=== PATIENT | male | born 1965 | race African-American/Black ===

== ENCOUNTER 2019-01-10 21:02 | Inpatient (IN) | payer MEDICAID ==
[~2019-01-10] VITALS: Ht 200.7 cm; Wt 93.0 kg
[2019-01-10] MEDS ORDERED: MORPHINE SULFATE 4 MG/ML CPJ (NOT FOR IM USE) IV STA (23:36)
[2019-01-11 00:25] LABS: BASOPHILS % 0.5 % (0.0-2.0); EOSINOPHILS % 1.1 % (0.0-5.0); HEMATOCRIT. 40.2 % (42.0-52.0); HEMOGLOBIN. 12.8 g/dL (14.0-18.0); LYMPHOCYTES % 27.9 % (20.0-50.0); MEAN CORPUSCULAR HEMOGLOBIN 21.7 pg (28.0-32.0); MEAN CORPUSCULAR VOLUME 67.8 fL (80.0-94.0); MONOCYTES % 4.7 % (2.0-8.0); NEUTROPHILS % 65.8 % (40.0-76.0); PLATELET 381 x1000/uL (130-400); RED BLOOD CELL COUNT 5.92 mill/uL (4.7-6.1); RED CELL DISTRIBUTION WIDTH 17.2 % (11.6-14.6)
[2019-01-11 00:31] LABS: CHLORIDE 100 mEq/L (98-107)
[2019-01-11 00:37] LABS: INR 1.1; PROTHROMBIN TIME 11.1 sec (9.1-11.1)
[2019-01-11] MEDS ORDERED: ACETAMINOPHEN 325MG TABLET PO ONE (01:00)
[2019-01-11] MEDS ORDERED: ACETAMINOPHEN 325MG TABLET PO PRN (07:45)
[2019-01-11] MEDS ORDERED: IPRATROPIUM/ALBUTEROL 0.5-3(2.5)MG/3ML NEB HHN PRN (07:45)
[2019-01-11] MEDS ORDERED: ONDANSETRON HCL 4MG/2ML INJ IV PRN (07:45)
[2019-01-11 08:00] VITALS: BP 125/84
[2019-01-11] MEDS ORDERED: NA PHOS,M-B/NA PHOS,DI-BA ENEMA 118ML PR NR (09:00)
[2019-01-11] MEDS ORDERED: LACTULOSE 20G/30ML UDC PO NR (09:00)
[2019-01-11] MEDS: DOCUSATE SODIUM 250MG CAPSULE PO SCH (09:38)
[2019-01-11 09:49] VITALS: BP 125/81
[2019-01-11 12:00] VITALS: BP 118/74
[2019-01-11] MEDS ORDERED: LACTULOSE 20G/30ML UDC PO PRN (14:00)
[2019-01-11] MEDS: OMEPRAZOLE 20MG CAPSULE EXTENDED RELEASE PO SCH (14:56)
[2019-01-11 16:00] VITALS: BP 114/74
[2019-01-11] MEDS: SUCRALFATE 1 G/10 ML UDC PO SCH ×2 (18:34→23:11)
[2019-01-11 23:00] VITALS: BP 127/76
[2019-01-12 04:00] VITALS: BP 131/74
[2019-01-12] MEDS: OMEPRAZOLE 20MG CAPSULE EXTENDED RELEASE PO SCH (06:37)
[2019-01-12] MEDS: SUCRALFATE 1 G/10 ML UDC PO SCH ×5 (06:37→23:34)
[2019-01-12 08:26] VITALS: BP 102/70
[2019-01-12] MEDS: DOCUSATE SODIUM 250MG CAPSULE PO SCH (08:55)
[2019-01-12 17:01] LABS: BASOPHILS % 0.7 % (0.0-2.0); EOSINOPHILS % 4.3 % (0.0-5.0); HEMATOCRIT. 35.3 % (42.0-52.0); MEAN CORPUSCULAR HEMOGLOBIN 21.3 pg (28.0-32.0); MEAN CORPUSCULAR VOLUME 68.3 fL (80.0-94.0); MEAN PLATELET VOLUME 8.4 fl (7.4-10.4); MONOCYTES % 6.3 % (2.0-8.0); NEUTROPHILS % 60.7 % (40.0-76.0); PLATELET 385 x1000/uL (130-400); RED BLOOD CELL COUNT 5.17 mill/uL (4.7-6.1); RED CELL DISTRIBUTION WIDTH 17.2 % (11.6-14.6)
[2019-01-12 17:06] LABS: CHLORIDE 105 mEq/L (98-107)
[2019-01-12 20:00] VITALS: BP 124/62
[2019-01-12] MEDS: BUDESONIDE 0.5MG/2ML NEB HHN SCH (20:07)
[2019-01-13] VITALS: BP 101/62
[2019-01-13 04:00] VITALS: BP 101/80
[2019-01-13 06:20] LABS: BASOPHILS % 0.8 % (0.0-2.0); EOSINOPHILS % 3.1 % (0.0-5.0); HEMATOCRIT. 31.8 % (42.0-52.0); HEMOGLOBIN. 10.2 g/dL (14.0-18.0); LYMPHOCYTES % 34.5 % (20.0-50.0); MEAN CORPUSCULAR HEMOGLOBIN 21.5 pg (28.0-32.0); MEAN CORPUSCULAR VOLUME 67.2 fL (80.0-94.0); MEAN PLATELET VOLUME 8.7 fl (7.4-10.4); MONOCYTES % 6.7 % (2.0-8.0); NEUTROPHILS % 54.9 % (40.0-76.0); PLATELET 331 x1000/uL (130-400); RED BLOOD CELL COUNT 4.73 mill/uL (4.7-6.1)
[2019-01-13] MEDS: SUCRALFATE 1 G/10 ML UDC PO SCH (06:34)
[2019-01-13 07:54] LABS: CHLORIDE 102 mEq/L (98-107)
[2019-01-13 08:00] VITALS: BP_SYST 101; BP_SYST 174; BP_DIAS 65; BP_DIAS 87
[2019-01-13] MEDS: DOCUSATE SODIUM 250MG CAPSULE PO SCH (08:58)
[2019-01-13] MEDS ORDERED: FAMOTIDINE 20MG TABLET PO SCH (09:00)
[2019-01-13] MEDS: BUDESONIDE 0.5MG/2ML NEB HHN SCH (09:45)
== END 2019-01-13 10:42 | disposition left against medical advice (07) | DRG 241 ==
LOC: ER 21:02 → 6EST 01-11 01:47 → ENRESERV 01-11 04:44
PROVIDERS: ADMIT Internal Medicine; ATTEND Internal Medicine
DX: K25.9 Gastric ulcer, unspecified as acute or chronic, without hemorrhage or perforation (principal); D64.9 Anemia, unspecified; I10 Essential (primary) hypertension; J45.909 Unspecified asthma, uncomplicated; K59.00 Constipation, unspecified; R00.0 Tachycardia, unspecified; Z87.11 Personal history of peptic ulcer disease; Z79.899 Other long term (current) drug therapy; Z88.6 Allergy status to analgesic agent
CPT/HCPCS: 36415; 74176; 80048; 82270; 85044; 96374; 99285; J2270; J7620; J7626

== ENCOUNTER 2019-03-24 17:48 | Emergency (ER) | payer OTHER, MEDICAID ==
[~2019-03-24] VITALS: Ht 188 cm; Wt 80.0 kg
[2019-03-24 17:56] VITALS: BP 120/73
== END 2019-03-24 18:57 | disposition left against medical advice (07) ==
LOC: ER 17:48
DX: R56.9 Unspecified convulsions (principal); J45.909 Unspecified asthma, uncomplicated; Z88.6 Allergy status to analgesic agent
CPT/HCPCS: 99283

== ENCOUNTER 2019-06-08 18:41 | Inpatient (IN) | payer MEDICAID, OTHER ==
[~2019-06-08] VITALS: Ht 195.6 cm; Wt 87.7 kg
[2019-06-08 20:00] VITALS: BP 146/95
[2019-06-08] MEDS ORDERED: MORPHINE SULFATE 4 MG/ML CPJ (NOT FOR IM USE) IV STA (20:31)
[2019-06-08] MEDS ORDERED: ONDANSETRON HCL 4MG/2ML INJ IV STA (20:31)
[2019-06-08] MEDS ORDERED: SODIUM CHLORIDE 0.9% 1,000 ML IV ONE (20:31)
[2019-06-08] MEDS ORDERED: FAMOTIDINE 20MG/2ML VIAL IV STA (20:31)
[2019-06-08 20:50] LABS: BASOPHILS % 0.6 % (0.0-2.0); EOSINOPHILS % 4.6 % (0.0-5.0); HEMATOCRIT. 36.2 % (42.0-52.0); HEMOGLOBIN. 11.4 g/dL (14.0-18.0); LYMPHOCYTES % 25.7 % (20.0-50.0); MEAN CORPUSCULAR HEMOGLOBIN 21.7 pg (28.0-32.0); MEAN CORPUSCULAR VOLUME 68.9 fL (80.0-94.0); MEAN PLATELET VOLUME 7.4 fl (7.4-10.4); MONOCYTES % 6.3 % (2.0-8.0); NEUTROPHILS % 62.8 % (40.0-76.0); PLATELET 376 x1000/uL (130-400); RED BLOOD CELL COUNT 5.25 mill/uL (4.7-6.1)
[2019-06-08 20:56] LABS: CHLORIDE 105 mEq/L (98-107); PROTHROMBIN TIME 9.9 sec (9.6-11.0)
[2019-06-08 21:15] LABS: PLATELET ESTIMATE NORMAL
[2019-06-08] MEDS ORDERED: MORPHINE SULFATE 4 MG/ML CPJ (NOT FOR IM USE) IV ONE (22:15)
[2019-06-08] MEDS ORDERED: MIDAZOLAM HCL 2 MG/2 ML VIAL IV ONE (22:15)
[2019-06-08] MEDS ORDERED: IOHEXOL-300 100 ML BOTTLE ONE (23:04)
[2019-06-09 00:26] VITALS: BP 146/95
[2019-06-09] MEDS ORDERED: MORPHINE SULFATE 2 MG/ML CPJ (NOT FOR IM USE) IV PRN (03:30)
[2019-06-09 04:00] VITALS: BP 129/79
[2019-06-09 07:21] LABS: *BENZODIAZEPINES SCREEN URINE PRESUMTIVE POSITIVE (NEGATIVE); *COCAINE SCREEN URINE NEGATIVE (NEGATIVE); CANNABINOID URINE SCREEN NEGATIVE (NEGATIVE); METHADONE URINE SCREEN NEGATIVE (NEGATIVE); OPIATES URINE SCREEN PRESUMTIVE POSITIVE (NEGATIVE); PHENCYCLIDINE URINE SCREEN NEGATIVE (NEGATIVE)
[2019-06-09 07:22] LABS: *AMPHETAMINES SCREEN URINE PRESUMTIVE POSITIVE (NEGATIVE); *BARBITURATES SCREEN URINE NEGATIVE (NEGATIVE)
[2019-06-09 07:36] LABS: CHLORIDE 108 mEq/L (98-107)
[2019-06-09 07:47] LABS: BASOPHILS % 0.5 % (0.0-2.0); EOSINOPHILS % 3.7 % (0.0-5.0); HEMOGLOBIN. 11.1 g/dL (14.0-18.0); LYMPHOCYTES % 32.5 % (20.0-50.0); MEAN CORPUSCULAR HEMOGLOBIN 21.8 pg (28.0-32.0); MEAN CORPUSCULAR VOLUME 68.9 fL (80.0-94.0); MEAN PLATELET VOLUME 7.7 fl (7.4-10.4); MONOCYTES % 5.7 % (2.0-8.0); NEUTROPHILS % 57.6 % (40.0-76.0); PLATELET 366 x1000/uL (130-400); RED BLOOD CELL COUNT 5.08 mill/uL (4.7-6.1); RED CELL DISTRIBUTION WIDTH 17.6 % (11.6-14.6)
[2019-06-09 08:02] LABS: C REACTIVE PROTEIN CARDIAC < 0.20 mg/L (0.00-3.00)
[2019-06-09 08:06] LABS: CREATINE KINASE MB FRACTION 2.5 ng/mL (0.5-3.6)
[2019-06-09] MEDS ORDERED: PANTOPRAZOLE SODIUM 40 MG/VIAL IV SCH (09:00)
[2019-06-09] MEDS ORDERED: ENOXAPARIN 40MG/0.4ML SYR SUBCUT SCH (09:00)
[2019-06-09 12:00] VITALS: BP 128/88
[2019-06-09] MEDS ORDERED: BISACODYL 5MG TABLET PO SCH (15:00)
[2019-06-09 16:00] VITALS: BP 129/88
[2019-06-10 01:55] VITALS: BP 129/88
== END 2019-06-10 08:20 | disposition left against medical advice (07) | DRG 241 ==
LOC: ER 18:41 → EDBEDREQTM 22:41 → EDBEDREQ 22:41 → CANRESERV 23:14 → ENRESERV 23:14 → EDBEDREQSVC 23:33 → EDBEDREQTM 23:35 → ENRESERV 23:38 → 6EST 06-09 00:25
PROVIDERS: ADMIT Internal Medicine; ATTEND Internal Medicine
DX: K29.71 Gastritis, unspecified, with bleeding (principal); E11.65 Type 2 diabetes mellitus with hyperglycemia; K25.4 Chronic or unspecified gastric ulcer with hemorrhage; F19.10 Other psychoactive substance abuse, uncomplicated; K59.00 Constipation, unspecified; Z53.21 Procedure and treatment not carried out due to patient leaving prior to being seen by health care provider; Z88.6 Allergy status to analgesic agent; Z87.11 Personal history of peptic ulcer disease; E44.1 Mild protein-calorie malnutrition
CPT/HCPCS: 36415; 74177; 80305; 82553; 83605; 84484; 86141; 86850; 86900; 96374; 96375; 99285; C1893; C9113; J1650; J2250; J2270; J2405; J3490; J7030; Q9967